=== PATIENT | male | born 1965 | race Caucasian/White ===

== ENCOUNTER → 2020-07-02 | Outpatient (CLI) | payer BC | LOC: KOH-I 11:30 | DX: R10.84 Generalized abdominal pain (principal); N20.0 Calculus of kidney; K40.90 Unilateral inguinal hernia, without obstruction or gangrene, not specified as recurrent | CPT/HCPCS: 74176 ==

== ENCOUNTER → 2021-03-20 | Outpatient (CLI) | payer BC | LOC: KOH-I 08:30 | DX: R10.2 Pelvic and perineal pain (principal); K42.9 Umbilical hernia without obstruction or gangrene | CPT/HCPCS: 72192 ==